=== PATIENT | female | born 1955 | race Caucasian/White ===

== ENCOUNTER 2017-09-21 12:23 | Inpatient (IN) ==
[2017-09-21] MEDS ORDERED: Naloxone 0.4 MG/ML INJ IVP PRN (14:38)
[2017-09-21] MEDS ORDERED: *HR* Metoprolol 5 MG/5 ML VIAL IVP PRN (14:47)
--- NOTE | 2017-09-21 14:51 | Internal Med History&Physical ---
<BillieDamon Buzz - Last Filed: 09/21/17 15:45> Date of Encounter: 09/21/17 Internal Medicine - H&P: HPI History of present illness: Ms. Lorenzo is a 62 year old female Internal Medicine - H&P: Meds Atorvastatin [Lipitor] 40 mg PO HS 09/21/17 [History] Fenofibrate [Tricor] 54 mg PO DAILY 09/21/17 [History] Furosemide [Lasix] 20 mg PO DAILY 09/21/17 [History] Levothyroxine [Synthroid] 75 mcg PO 0630 09/21/17 [History] Losartan [Cozaar] 12.5 mg PO DAILY 09/21/17 [History] Metoprolol [Lopressor] 50 mg PO BID 09/21/17 [History] Omeprazole [PriLOSEC] 40 mg PO DAILY 09/21/17 [History] Potassium Chloride [Klor-Con] 20 meq PO DAILY 09/21/17 [History] 3 Allergy/AdvReac Type Severity Reaction Status Date / Time sulfamethoxazole AdvReac Gastrointestinal Verified 09/21/17 08:37 [From Bactrim] Upset trimethoprim [From Bactrim] AdvReac Gastrointestinal Verified 09/21/17 08:37 Upset All Systems PM: A 10-system review of systems was performed and is negative for pertinent findings except as documented above in the HPI. - Attending Attestation Reviewed perforated sigmoid diverticulitis, no sepsis, hemodynamically stable Agree with plan, surgery eval Rest as in ETHAN Bridges's documentation <Shahram Epps J - Last Filed: 09/21/17 16:18> Date of Encounter: 09/21/17 Time of Encounter: 14:49 Assessment and Plan (1) Perforated sigmoid colon Current visit: Yes Status: Acute Perforated sigmoid colon on unclear etiology. CT reveals diverticulosis without diverticulitis. Likely that it could be a spontaneous perforation Examination of her abdomen reveals tenderness to left and right lower quadrants with left lower quadrant being more pronounced However, per my examination the abdomen does not appear to be acute. The patient's hemodynamically stable, mild leukocytosis of 13.3 and afebrile complaining of mild dull pain 2/10 to palpation. -Consult surgery-spoke with Dr. Morrell who's recommendations are as follows, to remain nothing by mouth, IV fluid hydration, pain management and IV antibiotic therapy. His been recommended the patient follow up in 8 weeks for an outpatient colonoscopy. -pain management with Dilaudid -IVF -Continue Coumadin pharmacy to dose -Continue telemetry, continuous O2 monitoring -Check lactic acid now -CBC D, CMP in the a.m. -Start IV ATB ciprofloxacin and Flagyl (2) Abdominal pain Current visit: Yes Status: Acute Abdominal pain in the left and right lower quadrant secondary to a small perforation in the sigmoid colon per CT -see plan above Qualifiers: Abdominal location: left lower quadrant Qualified Code(s): R10.32 - Left lower quadrant pain (3) HLD (hyperlipidemia) Current visit: Yes Status: Acute Home medications for hyperlipidemia well the patient is NPO Qualifiers: Hyperlipidemia type: unspecified Qualified Code(s): E78.5 - Hyperlipidemia , unspecified (4) HTN (hypertension) Current visit: Yes Status: Acute Patient is NPO in anticipation for surgical repair of perforated sigmoid colon -Hold antihypertensives -Metoprolol 5 mg IV push for SBP greater than 160; hold for HR less than 65 -Closely monitor hemodynamically status Qualifiers: Hypertension type: unspecified Qualified Code(s): I10 - Essential (primary ) hypertension (5) Hypothyroidism Current visit: Yes Status: Acute NPO due to anticipation of perforated sigmoid colon repair -37 g Synthroid IV push daily -Hold 75 g oral Synthroid dose while NPO Qualifiers: Hypothyroidism type: unspecified Qualified Code(s): E03.9 - Hypothyroidism , unspecified (6) DVT prophylaxis Current visit: Yes Status: Acute Patient is on Coumadin for mechanical mitral valve PT/INR therapeutic Internal Medicine - H&P: HPI Chief complaint: abdominal pain Admitted From: Home Plans for Post Hospital Care: Home History of present illness: Ms. Lorenzo is a 62 year old female with a PMH of hyperlipidemia, hypertension and hypothyroidism. She presents to [facility] today with complaints of left lower quadrant and right lower quadrant abdominal pain. She reports the pain grew out of her sleep is sometimes Saturday night. She states the pain is more predominant in the left lower quadrant with radiation to the right lower quadrant. She describes the pain as crampy, sharp and intense, she reports an increase in pain with change in position and with movement. She denies any fever, chills, chest pain, shortness of breath, dysuria, hematemesis, melena, hematochezia, difficulty with urination, constipation, nausea vomiting or diarrhea. CT of abdomen reveals diverticular formation but appears to be a possible small perforation. She is being admitted for IV antibiotic therapy and for surgical consult. Past Med Surg Social Fam HX - Past Medical History Medical history: hyperlipidemia, hypertension, thyroid disease Psychiatric history: no psych history - Social History Smoking Status: Former smoker Smokeless Tobacco Status: No Alcohol use: none Drug use: none - Family History Father Hx Family Cancer: Yes Hx Family Endocrine Disorder: Yes (DM) All Systems PM: A 10-system review of systems was performed and is negative for pertinent findings except as documented above in the HPI. Review of systems: REVIEW OF SYSTEMS GENERAL: Negative for any nausea, vomiting, fevers, chills, or weight loss. NEUROLOGIC: Negative for any blurry vision, blind spots, double vision, facial asymmetry, dysphagia, dysarthria, hemiparesis, hemisensory deficits, vertigo, ataxia. HEENT: Negative for any head trauma, neck trauma, neck stiffness, photophobia, phonophobia, sinusitis, rhinitis. CARDIAC: Negative for any chest pain, dyspnea on exertion, paroxysmal nocturnal dyspnea, peripheral edema. PULMONARY: Negative for any shortness of breath, wheezing, COPD, or TB exposure. GASTROINTESTINAL: Negative for any nausea, vomiting, bright red blood per rectum , melena. Positive for left and right lower quadrant abdominal pain, continues to pass gas per rectum GENITOURINARY: Negative for any dysuria, hematuria, incontinence. INTEGUMENTARY: Negative for any rashes, cuts, insect bites. RHEUMATOLOGIC: Negative for any joint pains, photosensitive rashes, history of vasculitis or kidney problems. HEMATOLOGIC: Negative for any abnormal bruising, frequent infections or bleeding. - Head Head exam: Present: atraumatic, normocephalic - Eye Eye exam: Present: PERRL, conjuntiva pink, sclera anicteric Pupils: Present: PERRL - Neck Neck exam general surgery: Present: supple, trachea midline. Absent: lymphadenopathy - Respiratory Respiratory exam: Present: CTAB. Absent: accessory muscle use, rales, rhonchi, wheezes - Cardiovascular Cardiovascular exam: Present: clicks (MECHANICAL MITRAL VALVE), RRR, +S1, +S2. Absent: diastolic murmur, gallop, rubs, systolic murmur - GI/Abdominal GI/Abdominal exam: Present: normal bowel sounds, soft, tenderness (RLQ AND LLQ, more pronounced in LLQ; abdomen does not appear acute), no peritoneal signs. Absent: distended, firm, guarding - Extremities Exam Extremities exam: Present: warm, radial pulses palpable and symmetrical. Absent : calf tenderness, cyanotic, pedal edema - Neurological Exam Neurological exam: Present: CN II-XII intact, oriented X3, no focal deficits. Absent: pronater drift, facial droop, speech deficit - Skin Skin exam: Present: dry, intact Internal Med - H&P Results - Diagnostic Studies CT scan - abdomen Status: image reviewed by me Additional comments: Extensive colonic diverticulosis with acute mid sigmoid perforated diverticulitis with adjacent inflammation. No discrete abscess or obstruction.
[2017-09-21] MEDS: 0.9 % Sodium Chloride 1,000 ML IVC SCH (15:13)
[2017-09-21] MEDS: MetroNIDAZOLE 500 MG/100 ML 500 MG/100 ML BAG IVPB SCH ×2 (16:04→23:34)
[2017-09-21] MEDS: *HR* HYDROmorphone (PF) 1 MG/ML SYRINGE IVP PRN (17:24)
[2017-09-21] MEDS ORDERED: Warfarin perPT PO PRN (18:00)
[2017-09-21] MEDS ORDERED: *HR* Warfarin 1 MG TABLET PO ONE (18:22)
[2017-09-21] MEDS: Ondansetron 4 MG/2 ML VIAL IVP PRN (20:12)
--- NOTE | 2017-09-21 21:31 | General Surgery Consult Note ---
Date of Encounter: 09/21/17 Time of Encounter: 16:00 Assessment and Plan (1) Perforation of sigmoid colon due to diverticulitis Current Visit: Yes Status: Acute DIscussed with patient and her family that she has acute diverticulitis with sigmoid perforation. Her CT findings are mild inflammation which correlate with her physical exam findings. She has mild to moderate pelvic and left lower quadrant abdominal pain. She does have a leukocytosis. She will be nothing by mouth okay by mouth medication. We will keep her hydrated with IV fluids. Due to the mild nature of her diverticulitis I do feel it is okay to keep her on her by mouth Coumadin for her mechanical mitral valve. She is on Cipro and Flagyl antibiotics. She is encouraged to get out of bed and ambulate. When necessary pain control. Serial abdominal exams. gi prophylaxis Discussed with her and her family that I do expect conservative therapy to result in resolution of this episode of diverticulitis with perforation. As patient has never previously had a colonoscopy we will plan for interval colonoscopy in 8 weeks. (2) Leukocytosis Current Visit: Yes Status: Acute continue antibiotics, cipro/flagyl trend wbc Qualifiers: Leukocytosis type: unspecified Qualified Code(s): D72.829 - Elevated white blood cell count, unspecified (3) HLD (hyperlipidemia) Current Visit: Yes Status: Chronic hold home medication currently Qualifiers: Hyperlipidemia type: unspecified Qualified Code(s): E78.5 - Hyperlipidemia , unspecified (4) HTN (hypertension) Current Visit: Yes Status: Chronic ok to continue home metoprolol, monitor BP Qualifiers: Hypertension type: essential hypertension Qualified Code(s): I10 - Essential (primary) hypertension (5) Hypothyroidism Current Visit: Yes Status: Chronic IV synthroid Qualifiers: Hypothyroidism type: unspecified Qualified Code(s): E03.9 - Hypothyroidism , unspecified History of Present Illness Consult date: 09/21/17 Reason for consult: other (perforted diverticultis) Requesting physician: Damon Wise History of present illness: Patient is a 62 yo female who presented to ED with 1 day history of right lower quadrant sharp pain without radiation. The pain was increasing in intensity prompting her to present to ED. She denies nausea or emesis. Has no complaints of dysuria. No fevers, chills or night sweats. No weight loss. No change in bowel habits/diarrhea or constipation. No melena or hematochezia. She has never previously had a colonoscopy. Denies [facility] colon cancer. CT scan of abdomen and pelvis shows acute perforated diverticulitis of the sigmoid colon. WBC elevated at 13.3. Patient has a mechanical mitral valve and is coumadin, inr 2.9. Past Med Surg Social Fam HX - Past Medical History Source: patient Medical history: GERD, hyperlipidemia, hypertension, thyroid disease Psychiatric history: no psych history - Past Surgical History Surgical History: heart valve replacement (mechanical mitral valve) - Social History Smoking Status: Former smoker Smokeless Tobacco Status: No Alcohol use: none Drug use: none Current living situation: Home, With Family - Family History Father Hx Family Cancer: Yes Hx Family Endocrine Disorder: Yes (DM) Medications and Allergies Atorvastatin [Lipitor] 40 mg PO HS 09/21/17 [History] Fenofibrate [Tricor] 54 mg PO DAILY 09/21/17 [History] Furosemide [Lasix] 20 mg PO DAILY 09/21/17 [History] Levothyroxine Sodium [Levothyroxine Sodium] 112 mcg PO 0630 09/21/17 [History] Losartan/HCTZ [Hyzaar 50-12.5 Tablet] 1 tab PO DAILY 09/21/17 [History] Metoprolol [Lopressor] 50 mg PO BID 09/21/17 [History] Omeprazole [PriLOSEC] 40 mg PO DAILY 09/21/17 [History] Potassium Chloride [Klor-Con] 20 meq PO DAILY 09/21/17 [History] Warfarin [Coumadin] 1.5 mg PO AD 09/21/17 [History] Warfarin [Coumadin] 2 mg PO AD 09/21/17 [History] 3 Allergy/AdvReac Type Severity Reaction Status Date / Time sulfamethoxazole AdvReac Gastrointestinal Verified 09/21/17 17:08 [From Bactrim] Upset trimethoprim [From Bactrim] AdvReac Gastrointestinal Verified 09/21/17 17:08 Upset Review of Systems All systems PM: reviewed and no additional remarkable complaints except as stated All systems PM: A 10-system review of systems was performed and is negative for pertinent findings except as documented above in the HPI. General Surgery Exam Initial Vital Signs Temp Pulse Resp BP Pulse Ox 98.0 F 76 14 96/71 96 09/21/17 15:59 01/27/18 15:59 09/21/17 15:59 09/21/17 15:59 09/21/17 15:59 - General physical appearance well developed, well nourished, no distress, obese - Eyes PERRL, normal ocular movement - ENT normal mucosa, normocephalic - Neck trachea midline - Respiratory normal expansion, clear to auscultation - Cardiovascular Cardiovascular exam: Present: RRR, no murmurs/rubs/gallops - Abdomen Abdomen general surgery: Present: bowel sounds present, soft, tender. Absent: distended, guarding, rebound Abdominal Tenderness: Present: LLQ, suprapubic - Integumentary Integumentary general surgery: Present: warm and dry, no abnormal pigmentation - Neurologic Present: CN 2-12 grossly intact - Musculoskeletal Present: normal posture - Psychiatric Psychiatric general surgery: Present: A&Ox3, speech is normal Exam Initial Vital Signs Temp Pulse Resp BP Pulse Ox 98.0 F 76 14 96/71 96 09/21/17 15:59 09/21/17 15:59 09/21/17 15:59 09/21/17 15:59 09/21/17 15:59 Results - Labs All other labs normal. - Imaging CT scan - abdomen: report reviewed, image reviewed CT scan - pelvis: report reviewed, image reviewed (FINDINGS: Thorax base: Enlarged heart size with no pericardial effusion. Prior mitral valve replacement. Lung bases demonstrate some mild chronic bronchitis and atelectasis. Right middle lobe patchy consolidation. No pleural effusion. Abdomen: Moderate abdominal aortic atherosclerosis with no aneurysm or periaortic hemorrhage. Splenic remote healed granulomatous disease. Cholelithiasis with no biliary obstruction or acute inflammatory changes. The liver, adrenals, and pancreas demonstrate no acute abnormality. The bilateral kidneys demonstrate no hydronephrosis. Right kidney 1.4 and 6.7 cm cyst, no further evaluation is needed. At the mid aspect there is a nonobstructing right 3 mm calculus. The bilateral ureters are normal. The stomach, small bowel, and appendix are normal. The ascending, transverse, and descending colon demonstrate moderate diverticulosis with no acute abnormality. Severe sigmoid colonic diverticulosis. At the level of the mid sigmoid colon there is focal wall thickening with adjacent fat induration and mild ascites. There are a few small internal extraluminal gas foci loculated in the adjacent inflammatory changes. No discrete abscess. Pelvis: Mild ascites. Borderline enlarged reactive iliac chain lymph nodes. Musculoskeletal structures: No significant inguinal lymphadenopathy. Lumbar spine degenerative changes with grade 1 anterolisthesis of L4 with respect to L5. Pubic symphysis degeneration. No acute osseous abnormality. CT/CT abd pelvis wo no iv no oral IMPRESSION: Extensive colonic diverticulosis with acute mid sigmoid perforated diverticulitis with adjacent inflammation. No discrete abscess or obstruction. Critical results were called by Dr. Caden Berg MD to Dr. Farris on 09/21/2017 at 09:20. D/ / 09/21/2017 10:10:27 Caden Berg MD / [facility]) Consult Discharge Plan - Plan Referrals: NONE,PCP [Primary Care Provider] -
[2017-09-22] MEDS ORDERED: *HR* LORazepam 2 MG/ML VIAL IVP ONE (03:50)
[2017-09-22] MEDS: 0.9 % Sodium Chloride 1,000 ML IVC SCH (03:51)
[2017-09-22] MEDS: *HR* HYDROmorphone (PF) 1 MG/ML SYRINGE IVP PRN (07:11)
[2017-09-22] MEDS: Ondansetron 4 MG/2 ML VIAL IVP PRN (07:12)
[2017-09-22] MEDS: MetroNIDAZOLE 500 MG/100 ML 500 MG/100 ML BAG IVPB SCH ×3 (07:14→22:59)
[2017-09-22 07:40] LABS: Alanine Aminotransferase 11 Units/L (7-52); Albumin 3.8 g/dL (3.5-5.7); Albumin/Globulin Ratio 1.4 (1.1-2.2); Alkaline Phosphatase 20 Units/L (34-104); Aspartate Amino Transferase 20 Units/L (13-39); BUN/Creatinine Ratio 23 (6-26); Bilirubin,Total 0.7 mg/dL (0.3-1.0); Blood Urea Nitrogen 23 mg/dL (8-23); Calcium 8.8 mg/dL (8.6-10.3); Carbon Dioxide 25 mEq/L (23-29); Chloride 103 mEq/L (98-107); Globulin 2.8 g/dL (2.4-3.5); Glucose 120 mg/dL (70-105); Osmolality,Calculated 289 (280-300); Potassium 3.5 mEq/L (3.5-5.1); Sodium 137 mEq/L (136-145); Total Protein 6.6 g/dL (6.4-8.9); eGFR For African Americans > 60 (> 60); eGFR For Non-African Americans 56 (> 60)
[2017-09-22 07:48] LABS: Basophils % 0.3 %; Eosinophils % 0.2 %; Hematocrit 36.8 % (35.3-44.9); Hemoglobin 11.5 g/dL (11.5-15.4); Immature Granulocytes % 0.4 % (0-4); Lymphocytes % 9.7 %; Mean Corpuscular HGB Conc 31.3 g/dL (31.6-35.5); Mean Corpuscular Hemoglobin 28.8 pg (28.0-33.3); Mean Corpuscular Volume 92.2 fL (83.0-100.0); Monocytes # 0.8 K/mcL (0.0-1.3); Monocytes % 7.1 %; Neutrophils # 8.7 K/mcL (1.6-8.9); Platelet Count 211 K/mcL (140-400); Red Blood Count 3.99 M/mcL (3.82-4.97); Red Cell Distribution Width 13.1 % (11.5-14.5); Segmented Neutrophils % 82.3 %
[2017-09-22] MEDS ORDERED: D5% in 0.45% NACL 1,000 ML IVC SCH (08:00)
[2017-09-22] MEDS: Pantoprazole 40 MG VIAL IVP SCH (08:01)
--- NOTE | 2017-09-22 08:19 | Internal Med Progress Note ---
Date of Encounter: 09/22/17 Time of Encounter: 08:16 - Assessment and plan (1) Perforation of sigmoid colon due to diverticulitis Current Visit: Yes Status: Acute Assessment and plan: Cont NPO IV abx Cipro and Flagyl Improving Surgery on board IV hydration D51/2 NS IV analgesics Pt does c/o anxiety too.. will give her PRN Ativan (2) Abdominal pain Current Visit: Yes Status: Acute Assessment and plan: Due to sigmoid diverticulitis improving Qualifiers: Abdominal location: left lower quadrant Qualified Code(s): R10.32 - Left lower quadrant pain (3) Hx of mitral valve replacement with mechanical valve Current Visit: Yes Status: Acute Assessment and plan: on Coumadin for anti coag INR 2.9 y/d Surgery cleared her to continue PO Coumadin cont close monitoring (4) HTN (hypertension) Current Visit: Yes Status: Chronic Assessment and plan: stable with home meds Qualifiers: Hypertension type: essential hypertension Qualified Code(s): I10 - Essential (primary) hypertension (5) Hypothyroidism Current Visit: Yes Status: Chronic Assessment and plan: resume home med in AM Qualifiers: Hypothyroidism type: unspecified Qualified Code(s): E03.9 - Hypothyroidism , unspecified - Subjective Interval history: Patient is a 62 yo female who presented to ED with 1 day history of right lower quadrant sharp pain without radiation. The pain was increasing in intensity prompting her to present to ED. No change in bowel habits/diarrhea or constipation. No melena or hematochezia. She has never previously had a colonoscopy. Denies [facility] colon cancer. CT scan of abdomen and pelvis shows acute perforated diverticulitis of the sigmoid colon. WBC elevated at 13.3. Patient has a mechanical mitral valve and is coumadin, inr 2.9. Pt was admitted in the hospital and started her on empirical IV abx and IV hydration. Pt was seen bby surgery recommend continue medical management. Pt stated her abd pain 2/10 this morning. No CP / SOB. No N/ V - Constitutional Vitals: Temp Pulse Resp BP Pulse Ox 98.2 F 109 14 112/69 96 09/22/17 07:04 09/22/17 07:04 09/22/17 07:04 09/22/17 07:04 09/22/17 08:11 General appearance: Present: A&O X 3, no acute distress, answers questions appropriately - Head Head exam: Present: atraumatic, normal inspection - Neck Neck exam general surgery: Present: supple - Respiratory Respiratory exam: Present: decreased breath sounds. Absent: rales, respiratory distress, rhonchi, wheezes - Cardiovascular Cardiovascular exam: Present: RRR, +S1, +S2, systolic murmur. Absent: tachycardia - GI/Abdominal GI/Abdominal exam: Present: normal bowel sounds, soft, tenderness (mild tenderness @ LLQ). Absent: rebound, rigid - Extremities Exam Extremities exam: Absent: calf tenderness, pedal edema, tenderness - Back Exam Back exam: Absent: CVA tenderness (L), CVA tenderness (R) - Psychiatric Psychiatric exam: Present: normal affect, normal mood Internal Medicine: Result - Labs CBC & Chem 7: 09/22/17 06:30 09/22/17 06:30 Labs: Short CBC 09/22/17 Range/Units 06:30 WBC 10.5 (4.3-11.1) K/mcL Hgb 11.5 D (11.5-15.4) g/dL Hct 36.8 (35.3-44.9) % Plt Count 211 (140-400) K/mcL Neutrophils # 8.7 (1.6-8.9) K/mcL BMP 09/22/17 06:30 Sodium 137 Potassium 3.5 Chloride 103 Carbon Dioxide 25 BUN 23 Creatinine 0.99 Glucose 120 H Calcium 8.8 Liver Function 09/22/17 Range/Units 06:30 Total Bilirubin 0.7 (0.3-1.0) mg/dL AST 20 (13-39) Units/L ALT 11 (7-52) Units/L Alkaline Phosphatase 20 L (34-104) Units/L Albumin 3.8 (3.5-5.7) g/dL Consult Discharge Plan - Plan Referrals: NONE,PCP [Primary Care Provider] -
[2017-09-22] MEDS: D5% in 0.45% NACL 1,000 ML IVC SCH ×2 (08:20→23:00)
[2017-09-22] MEDS: *HR* LORazepam 2 MG/ML VIAL IVP PRN ×2 (08:34→20:06)
[2017-09-22] MEDS ORDERED: Furosemide 20 MG/2 ML VIAL IVP SCH (09:00)
[2017-09-22] MEDS ORDERED: Levothyroxine Sodium 100 MCG VIAL IVP SCH (09:00)
--- NOTE | 2017-09-22 13:12 | General Surgery Progress Note ---
Date of Encounter: 09/22/17 Time of Encounter: 13:09 - Assessment and Plan (1) Perforation of sigmoid colon due to diverticulitis Current Visit: Yes Status: Acute DIscussed with patient and her family that she has acute diverticulitis with sigmoid perforation. Her CT findings are mild inflammation which correlate with her physical exam findings. She has mild to moderate pelvic and left lower quadrant abdominal pain. leukocytosis resolved start cleares decrease IV fluids. Due to the mild nature of her diverticulitis I do feel it is okay to keep her on her by mouth Coumadin for her mechanical mitral valve. continue Cipro and Flagyl antibiotics. She is encouraged to get out of bed and ambulate. When necessary pain control. Serial abdominal exams. gi prophylaxis Discussed with her and her family that I do expect conservative therapy to result in resolution of this episode of diverticulitis with perforation. As patient has never previously had a colonoscopy we will plan for interval colonoscopy in 8 weeks. (2) Leukocytosis Current Visit: Yes Status: Resolved continue antibiotics, cipro/flagyl trend wbc, normal today Qualifiers: Leukocytosis type: unspecified Qualified Code(s): D72.829 - Elevated white blood cell count, unspecified (3) HLD (hyperlipidemia) Current Visit: Yes Status: Chronic hold home medication currently Qualifiers: Hyperlipidemia type: unspecified Qualified Code(s): E78.5 - Hyperlipidemia , unspecified (4) HTN (hypertension) Current Visit: Yes Status: Chronic ok to continue home metoprolol, monitor BP - controlled Qualifiers: Hypertension type: essential hypertension Qualified Code(s): I10 - Essential (primary) hypertension (5) Hypothyroidism Current Visit: Yes Status: Chronic ok home po synthroid Qualifiers: Hypothyroidism type: unspecified Qualified Code(s): E03.9 - Hypothyroidism , unspecified Subjective Patient reports: no new complaints, feels better, still having pain, pain is less, flatus, no bowel movement, afebrile Objective Vital Signs - Last 8 Hours Temp Pulse Resp BP Pulse Ox 09/22/17 11:50 98.7 F 102 14 105/70 94 09/22/17 08:11 96 09/22/17 07:04 98.2 F 109 14 112/69 96 Intake and Output 09/21/17 09/22/17 09/22/17 23:59 07:59 15:59 Intake Total 300 / 300 1650 / 1650 500 / 500 Output Total 325 / 325 100 / 100 200 / 200 Balance -25 / -25 1550 / 1550 300 / 300 Intake: IV Fluids 300 / 300 1650 / 1650 500 / 500 0.9 % Sodium Chloride 1,000 ML 1350 / 1350 100 / 100 @ 100 mls/hr IVC .Q10H [facility] Rx#: [id number] D5% And 0.45% Nacl 1000 Ml Bag 300 / 300 1,000 ML @ 100 mls/hr IVC .Q10H [facility]Y Rx#:[id number] Cipro Premix 400 MG/200 ML 400 200 / 200 200 / 200 mg In 200 ml @ 200 mls/hr IVPB Q12HR [facility] Rx#:[id number] Flagyl Premix 500 MG/100 ML 500 100 / 100 100 / 100 100 / 100 mg In 100 ml @ 100 mls/hr IVPB Q8HR [facility] Rx#:[id number] Oral 0 / 0 0 / 0 Output: Urine 325 / 325 100 / 100 200 / 200 Other: Weight 84.6 kg Blood Glucose* 75 159 Patient Weight 09/22/17 23:59 Weight 84.6 kg - General physical appearance well developed, well nourished, no distress - Eyes PERRL, normal ocular movement - ENT normal mucosa, normocephalic - Respiratory normal expansion, normal respiratory effort - Cardiovascular Cardiovascular exam: Present: RRR - Abdomen Abdomen: Present: bowel sounds present, soft, tender (minimally ). Absent: distended, guarding, rebound Abdominal Tenderness: LLQ, suprapubic - Integumentary no rash, no growths - Neurologic CN 2-12 grossly intact - Musculoskeletal normal posture - Psychiatric oriented to time, oriented to person, oriented to place, speech is normal, memory intact - Labs 09/22/17 06:30 09/22/17 06:30 Diabetes panel 09/22/17 Range/Units 06:30 Sodium 137 (136-145) mEq/L Potassium 3.5 (3.5-5.1) mEq/L Chloride 103 (98-107) mEq/L Carbon Dioxide 25 (23-29) mEq/L BUN 23 (8-23) mg/dL Creatinine 0.99 (0.60-1.20) mg/dL Glucose 120 H (70-105) mg/dL Calcium 8.8 (8.6-10.3) mg/dL AST 20 (13-39) Units/L ALT 11 (7-52) Units/L Alkaline Phosphatase 20 L (34-104) Units/L Albumin 3.8 (3.5-5.7) g/dL Calcium panel 09/22/17 Range/Units 06:30 Calcium 8.8 (8.6-10.3) mg/dL Albumin 3.8 (3.5-5.7) g/dL Pituitary panel 09/22/17 Range/Units 06:30 Sodium 137 (136-145) mEq/L Potassium 3.5 (3.5-5.1) mEq/L Chloride 103 (98-107) mEq/L Carbon Dioxide 25 (23-29) mEq/L BUN 23 (8-23) mg/dL Creatinine 0.99 (0.60-1.20) mg/dL Glucose 120 H (70-105) mg/dL Calcium 8.8 (8.6-10.3) mg/dL Adrenal panel 09/22/17 Range/Units 06:30 Sodium 137 (136-145) mEq/L Potassium 3.5 (3.5-5.1) mEq/L Chloride 103 (98-107) mEq/L Carbon Dioxide 25 (23-29) mEq/L BUN 23 (8-23) mg/dL Creatinine 0.99 (0.60-1.20) mg/dL Glucose 120 H (70-105) mg/dL Calcium 8.8 (8.6-10.3) mg/dL Total Bilirubin 0.7 (0.3-1.0) mg/dL AST 20 (13-39) Units/L ALT 11 (7-52) Units/L Alkaline Phosphatase 20 L (34-104) Units/L Albumin 3.8 (3.5-5.7) g/dL Consult Discharge Plan - Plan Referrals: NONE,PCP [Non-Partnered Physician] -
[2017-09-22 13:44] LABS: INR 3.2; Prothrombin Time 35.4 Seconds (9.4-12.1)
[2017-09-22] MEDS ORDERED: *HR* Warfarin 1 MG TABLET PO ONE (18:00)
[2017-09-23 04:40] LABS: Basophils % 0.4 %; Eosinophils # 0.1 K/mcL (0.0-0.6); Eosinophils % 1.1 %; Hematocrit 32.1 % (35.3-44.9); Hemoglobin 10.1 g/dL (11.5-15.4); Immature Granulocytes % 0.4 % (0-4); Lymphocytes # 0.9 K/mcL (0.6-4.6); Lymphocytes % 10.5 %; Mean Corpuscular HGB Conc 31.5 g/dL (31.6-35.5); Mean Corpuscular Hemoglobin 28.5 pg (28.0-33.3); Mean Corpuscular Volume 90.7 fL (83.0-100.0); Mean Platelet Volume 11.8 fL (9.4-12.4); Monocytes # 1.2 K/mcL (0.0-1.3); Monocytes % 13.4 %; Neutrophils # 6.7 K/mcL (1.6-8.9); Nucleated Red Blood Cells 0.2 /100 WBC (0); Platelet Count 187 K/mcL (140-400); Red Blood Count 3.54 M/mcL (3.82-4.97); Red Cell Distribution Width 13.1 % (11.5-14.5); Segmented Neutrophils % 74.2 %
[2017-09-23 04:49] LABS: INR 3.6; Prothrombin Time 39.3 Seconds (9.4-12.1)
[2017-09-23] MEDS: Pantoprazole 40 MG VIAL IVP SCH (08:05)
[2017-09-23] MEDS: Ondansetron 4 MG/2 ML VIAL IVP PRN (08:05)
[2017-09-23] MEDS: MetroNIDAZOLE 500 MG/100 ML 500 MG/100 ML BAG IVPB SCH (08:06)
[2017-09-23 09:46] LABS: BUN/Creatinine Ratio 19 (6-26); Blood Urea Nitrogen 17 mg/dL (8-23); Calcium 8.6 mg/dL (8.6-10.3); Carbon Dioxide 24 mEq/L (23-29); Chloride 105 mEq/L (98-107); Glucose 121 mg/dL (70-105); Magnesium 1.5 mg/dL (1.6-2.6); Osmolality,Calculated 283 (280-300); Potassium 3.5 mEq/L (3.5-5.1); Sodium 135 mEq/L (136-145); eGFR For African Americans > 60 (> 60); eGFR For Non-African Americans > 60 (> 60)
[2017-09-23] MEDS ORDERED: *HR* OxyCODONE Immed Rel 5 MG TABLET PO PRN (10:15)
--- NOTE | 2017-09-23 10:25 | Discharge Summary ---
<Marie Romero - Last Filed: 09/23/17 11:31> Date of Encounter: 09/23/17 Time of Encounter: 09:45 - Discharge Diagnosis (1) Perforation of sigmoid colon due to diverticulitis Priority: Primary Status: Acute (2) HLD (hyperlipidemia) Priority: Secondary Status: Chronic Qualifiers: Hyperlipidemia type: unspecified Qualified Code(s): E78.5 - Hyperlipidemia , unspecified (3) HTN (hypertension) Priority: Secondary Status: Chronic Qualifiers: Hypertension type: essential hypertension Qualified Code(s): I10 - Essential (primary) hypertension (4) Hypothyroidism Priority: Secondary Status: Chronic Qualifiers: Hypothyroidism type: unspecified Qualified Code(s): E03.9 - Hypothyroidism , unspecified (5) Hx of mitral valve replacement with mechanical valve Priority: Secondary Status: Chronic - Discharge Medications Prescriptions: Ondansetron ODT [Zofran ODT] 4 mg SL Q6HR PRN #30 tab.rapdis PRN Reason: Nausea Ciprofloxacin [Cipro] 500 mg PO BID #24 tablet metroNIDAZOLE [Flagyl] 500 mg PO TID #36 tablet Home Medications: Atorvastatin [Lipitor] 40 mg PO HS 09/21/17 [History] Fenofibrate [Tricor] 54 mg PO DAILY 09/21/17 [History] Furosemide [Lasix] 20 mg PO DAILY 09/21/17 [History] Levothyroxine Sodium 112 mcg PO 30 09/21/17 [History] Losartan/HCTZ [Hyzaar 50-12.5 Tablet] 1 tab PO DAILY 09/21/17 [History] Metoprolol [Lopressor] 50 mg PO BID 09/21/17 [History] Omeprazole [PriLOSEC] 40 mg PO DAILY 09/21/17 [History] Potassium Chloride [Klor-Con] 20 meq PO DAILY 09/21/17 [History] Warfarin [Coumadin] 1.5 mg PO AD 09/21/17 [History] Warfarin [Coumadin] 2 mg PO AD 09/21/17 [History] Ciprofloxacin [Cipro] 500 mg PO BID #24 tablet 09/23/17 [Rx] Ondansetron ODT [Zofran ODT] 4 mg SL Q6HR PRN #30 tab.rapdis 09/23/17 [Rx] metroNIDAZOLE [Flagyl] 500 mg PO TID #36 tablet 09/23/17 [Rx] Allergies/Adverse Reactions: 3 Allergy/AdvReac Type Severity Reaction Status Date / Time sulfamethoxazole AdvReac Gastrointestinal Verified 09/21/17 17:08 [From Bactrim] Upset trimethoprim [From Bactrim] AdvReac Gastrointestinal Verified 09/21/17 17:08 Upset General Surgery Exam Initial Vital Signs Temp Pulse Resp BP Pulse Ox 98.0 F 76 14 96/71 96 09/21/17 15:59 09/21/17 15:59 09/21/17 15:59 09/21/17 15:59 09/21/17 15:59 - General physical appearance well developed, well nourished, no distress, no pain - Eyes normal ocular movement - ENT normal mucosa, atraumatic, normocephalic - Neck trachea midline - Respiratory normal expansion, normal respiratory effort, clear to auscultation - Cardiovascular Cardiovascular exam: Present: RRR - Abdomen Abdomen general surgery: Present: bowel sounds present, soft, non tender - Integumentary Integumentary general surgery: Present: warm and dry - Neurologic Present: CN 2-12 grossly intact - Musculoskeletal Present: normal gait, normal posture - Psychiatric Psychiatric general surgery: Present: appropriate, oriented to person, oriented to place, oriented to time, speech is normal, memory intact Date of admission: 09/21/17 13:56 Primary care physician: Salazar Alonso Consults: 09/21/17 14:58 Consult to Surgery [CONS] Routine Consulting Provider: [facility] Reason for Consult: Perforated sigmoid colon Time Notified: 14:58 Call Completed: Yes 09/23/17 10:04 consult to engraver wood [Consult to Nutrition] [CONS] Routine Consulting Provider: NUTRITION Comment: Low fiber diet for the next 6-8 weeks Reason for Dietary Consult: Diet Education Discharging clinician: Randa Morrell ([facility]) Anticipated date of discharge: 09/23/17 - Patient Status Disposition: Home, Self-Care Condition: Good Functional capacity at discharge: independent ambulation Overall status at discharge: patient is progressing back to baseline - Discharge Instructions Instructions: Ciprofloxacin (By mouth), Metronidazole (By mouth), Ondansetron ( By mouth), Low Fiber Diet (GEN), Diverticulitis Diet (GEN) Follow Up With: Randa Morrell MD [Partnered Physician] - 10/09/17 9:35 am (hospital follow- up; discuss interval colonoscopy) - Diet and Activity Activity: increase activity as tolerated Diet: other (Low Fiber diet for the next 6-8 weeks) - Hospital Course Hospital course: Ms. Lorenzo is a 62 year old female who presented to the hospital with a one- day history of abdominal pain. Her workup revealed evidence of perforation of the sigmoid colon secondary to diverticulitis. The patient was admitted to the hospital and treated with conservative measures including bowel rest, IV fluids , IV antibiotics and supportive care. The patient did significantly improve with these treatment measures. She is pain free at this time is tolerating a liquid diet. Her vital signs are stable and she is afebrile. Her white blood cell count has returned to normal. She is passing gas and has had bowel movements. She denies any abdominal pain at this time. We will advance her to a low fiber diet and plan for discharge after lunch if she is able to tolerate. The dietitian has been consulted to discuss low fiber diet which she will be on for the next 6-8 weeks. The patient will follow-up in the surgery office in 2 weeks to discuss an interval colonoscopy which will be performed with Dr. Morrell in the next 6-8 weeks. - Time Spent with Patient Total time spent providing and/or coordinating discharge services: Less than 30 minutes Labs on day of discharge: Labs from last 24 hours 09/23/17 09/23/17 09/23/17 04:08 04:08 04:08 WBC 9.0 RBC 3.54 L Hgb 10.1 L Hct 32.1 L MCV 90.7 MCH 28.5 MCHC 31.5 L RDW 13.1 Plt Count 187 MPV 11.8 Immature Gran % 0.4 Seg Neutrophils % 74.2 Lymphocytes % 10.5 Monocytes % 13.4 Eosinophils % 1.1 Basophils % 0.4 Neutrophils # 6.7 Lymphocytes # 0.9 Monocytes # 1.2 Eosinophils # 0.1 Basophils # 0.0 Nucleated RBCs/100 WBC 0.2 H PT 39.3 H INR 3.6 Sodium 135 L Potassium 3.5 Chloride 105 Carbon Dioxide 24 BUN 17 Creatinine 0.89 Est GFR ( Amer) > 60 Est GFR (Non-Af Amer) > 60 BUN/Creatinine Ratio 19 Glucose 121 H POC Glucose Calculated Osmolality 283 Calcium 8.6 Magnesium 1.5 L 09/22/17 09/22/17 13:26 11:21 WBC RBC Hgb Hct MCV MCH MCHC RDW Plt Count MPV Immature Gran % Seg Neutrophils % Lymphocytes % Monocytes % Eosinophils % Basophils % Neutrophils # Lymphocytes # Monocytes # Eosinophils # Basophils # Nucleated RBCs/100 WBC PT 35.4 H INR 3.2 Sodium Potassium Chloride Carbon Dioxide BUN Creatinine Est GFR ( Amer) Est GFR (Non-Af Amer) BUN/Creatinine Ratio Glucose POC Glucose 159 H Calculated Osmolality Calcium Magnesium <Randa Morrell L - Last Filed: 09/25/17 00:50> Date of Encounter: 09/25/17 - Discharge Diagnosis (1) Perforation of sigmoid colon due to diverticulitis Status: Acute (2) Leukocytosis Status: Resolved Qualifiers: Leukocytosis type: unspecified Qualified Code(s): D72.829 - Elevated white blood cell count, unspecified (3) HLD (hyperlipidemia) Status: Chronic Qualifiers: Hyperlipidemia type: unspecified Qualified Code(s): E78.5 - Hyperlipidemia , unspecified (4) HTN (hypertension) Status: Chronic Qualifiers: Hypertension type: essential hypertension Qualified Code(s): I10 - Essential (primary) hypertension (5) Hypothyroidism Status: Chronic Qualifiers: Hypothyroidism type: unspecified Qualified Code(s): E03.9 - Hypothyroidism , unspecified General Surgery Exam Initial Vital Signs Temp Pulse Resp BP Pulse Ox 98.0 F 76 14 96/71 96 09/21/17 15:59 09/21/17 15:59 09/21/17 15:59 09/21/17 15:59 09/21/17 15:59 Date of admission: 09/21/17 13:56 Primary care physician: Salazar Alonso Consults: 09/21/17 14:58 Consult to Surgery [CONS] Routine Consulting Provider: [facility] Reason for Consult: Perforated sigmoid colon Time Notified: 14:58 Call Completed: Yes 09/23/17 10:04 consult to engraver wood [Consult to Nutrition] [CONS] Routine Comment: Low fiber diet for the next 6-8 weeks Consulting Provider: NUTRITION Reason for Dietary Consult: Diet Education - Hospital Course Hospital course: Ms. Lorenzo is a 62 year old female - Time Spent with Patient Total time spent providing and/or coordinating discharge services:
[2017-09-23 10:42] VITALS: BP 113/75
--- NOTE | 2017-09-23 12:06 | Internal Med Progress Note ---
Date of Encounter: 09/23/17 Time of Encounter: 11:00 - Assessment and plan (1) Perforation of sigmoid colon due to diverticulitis Current Visit: Yes Status: Acute Assessment and plan: Advance diet as tolerated IV abx Cipro and Flagyl Improving Surgery on board IV hydration D51/2 NS IV analgesics Over al medically pt symptoms improved. Medically stable to d/c home today with PO Abx Talked to surgery and will transfer the pt to their service. (2) Abdominal pain Current Visit: Yes Status: Acute Assessment and plan: Due to sigmoid diverticulitis improving Qualifiers: Abdominal location: left lower quadrant Qualified Code(s): R10.32 - Left lower quadrant pain (3) Hx of mitral valve replacement with mechanical valve Current Visit: Yes Status: Chronic Assessment and plan: on Coumadin for anti coag INR 3.6 cont Coumadin (4) HTN (hypertension) Current Visit: Yes Status: Chronic Assessment and plan: stable with home meds Qualifiers: Hypertension type: essential hypertension Qualified Code(s): I10 - Essential (primary) hypertension (5) Hypothyroidism Current Visit: Yes Status: Chronic Assessment and plan: resume home med Qualifiers: Hypothyroidism type: unspecified Qualified Code(s): E03.9 - Hypothyroidism , unspecified - Subjective Interval history: Patient is a 62 yo female who presented to ED with 1 day history of right lower quadrant sharp pain without radiation. The pain was increasing in intensity prompting her to present to ED. No change in bowel habits/diarrhea or constipation. No melena or hematochezia. She has never previously had a colonoscopy. Denies [facility] colon cancer. CT scan of abdomen and pelvis shows acute perforated diverticulitis of the sigmoid colon. WBC elevated at 13.3. Patient has a mechanical mitral valve and is coumadin, inr 2.9. Pt was admitted in the hospital and started her on empirical IV abx and IV hydration. Pt was seen by surgery recommend continue medical management. Pt stated her abd pain 2/10 this morning. No CP / SOB. No N/ V..tolerating clear liquid diet well. feelin much better today. pt wants to go home today - Constitutional Vitals: Temp Pulse Resp BP Pulse Ox 98.1 F 93 13 113/75 96 09/23/17 10:41 09/23/17 10:41 09/23/17 10:41 09/23/17 10:41 09/23/17 10:41 General appearance: Present: A&O X 3, no acute distress, answers questions appropriately - Head Head exam: Present: atraumatic, normal inspection - Neck Neck exam general surgery: Present: supple - Respiratory Respiratory exam: Present: decreased breath sounds. Absent: rales, respiratory distress, rhonchi, wheezes - Cardiovascular Cardiovascular exam: Present: RRR, +S1, +S2. Absent: tachycardia - GI/Abdominal GI/Abdominal exam: Present: normal bowel sounds, soft, tenderness (mild discomfort in lower abdomen). Absent: rebound, rigid - Back Exam Back exam: Absent: CVA tenderness (L), CVA tenderness (R) - Neurological Exam Neurological exam: Present: alert, oriented X3 Internal Medicine: Result - Labs CBC & Chem 7: 09/23/17 04:08 09/23/17 04:08 Labs: Short CBC 09/23/17 Range/Units 04:08 WBC 9.0 (4.3-11.1) K/mcL Hgb 10.1 L (11.5-15.4) g/dL Hct 32.1 L (35.3-44.9) % Plt Count 187 (140-400) K/mcL Neutrophils # 6.7 (1.6-8.9) K/mcL BMP 09/23/17 04:08 Sodium 135 L Potassium 3.5 Chloride 105 Carbon Dioxide 24 BUN 17 Creatinine 0.89 Glucose 121 H Calcium 8.6 - ABG Interpretation ABG results: PT/INR, D-dimer PT 39.3 Seconds (9.4-12.1) H 09/23/17 04:08 Consult Discharge Plan - Plan Instructions: Ciprofloxacin (By mouth), Metronidazole (By mouth), Ondansetron ( By mouth), Low Fiber Diet (GEN), Diverticulitis Diet (GEN) Referrals: Randa Morrlel MD [Partnered Physician] - 10/09/17 9:35 am (hospital follow- up; discuss interval colonoscopy) Prescriptions: Ondansetron ODT [Zofran ODT] 4 mg SL Q6HR PRN #30 tab.rapdis PRN Reason: Nausea Ciprofloxacin [Cipro] 500 mg PO BID #24 tablet metroNIDAZOLE [Flagyl] 500 mg PO TID #36 tablet
--- NOTE | 2017-09-24 17:10 | Electrocardiograph Report ---
[place] [id number] Test Date: 2017-09-21 Pat Name: Lisa Lorenzo Department: 115 Room: 3A12 Gender: F [employer]acking [employer] Feeder: [email or web address] : [id number] Requested By: Shahram Epps Order Number: [id number] Reading MD: Gregg Monet Measurements Intervals [place] Rate: 86 P: SC: 0 QRS: 26 QRSD: 91 T: 18 QT: 388 QTc: 432 Interpretive Statements ATRIAL FIBRILLATION LOW QRS VOLTAGE IN PRECORDIAL LEADS POSSIBLE RIGHT VENTRICULAR CONDUCTION DELAY NONSPECIFIC ST & T-WAVE ABNORMALITY ABNORMAL RHYTHM ECG Electronically Signed On 09-24-2017 17:09:08 EST by Gregg Monet
== END 2017-09-23 14:00 | disposition home or self-care (01) | DRG 392 ==
LOC: 3ANU 13:56
PROVIDERS: ADMIT Internal Medicine; ATTEND Internal Medicine